=== PATIENT | male | born 1980 | race Caucasian/White ===

== ENCOUNTER 2020-05-19 23:13 | Emergency (ER) | payer OTHER ==
[~2020-05-19] VITALS: Ht 175.3 cm; Wt 79.4 kg
== END 2020-05-20 03:02 | disposition left against medical advice (07) ==
LOC: ER 23:13
DX: S01.82XA Laceration with foreign body of other part of head, initial encounter (principal); W18.39XA Other fall on same level, initial encounter; Y93.89 Activity, other specified; Y92.488 Other paved roadways as the place of occurrence of the external cause; Y99.8 Other external cause status